=== PATIENT | male | born 1990 | race Caucasian/White ===

== ENCOUNTER 2023-09-17 15:10 | Emergency (ER) | payer BC ==
[2023-09-17] MEDS ORDERED: TETANUS, DIPHTHERIA TOX,ADULT (TDVAX) 0.5 ML VIAL IM ONE (15:56)
[2023-09-17] MEDS ORDERED: Acetaminophen 325 MG TAB ONE (15:56)
[2023-09-17] MEDS ORDERED: Ketorolac Tromethamine 30 MG (1 mL) VIAL ONE (15:56)
== END 2023-09-17 17:10 | disposition home or self-care (01) ==
LOC: ERS 15:10
DX: S52.122A Displaced fracture of head of left radius, initial encounter for closed fracture (principal); S50.312A Abrasion of left elbow, initial encounter; S60.511A Abrasion of right hand, initial encounter; V49.9XXA Car occupant (driver) (passenger) injured in unspecified traffic accident, initial encounter; Z23 Encounter for immunization
CPT/HCPCS: 24650; 90471; 90714; 96372; J1885